=== PATIENT | male | born 1985 | race Caucasian/White ===

== ENCOUNTER 2019-06-17 13:42 | Emergency (ER) | payer OTHER ==
[~2019-06-17] VITALS: Ht 180.3 cm; Wt 75.7 kg
[2019-06-17 14:38] VITALS: BP 134/64
[2019-06-17] MEDS: fentaNYL PF VIAL 100 MCG/2 ML VIAL IM ONE (15:35)
[2019-06-17] MEDS: DIPHTH,PERTUSS(ACELL),TET TOX 0.5 ML DISP.SYRIN. VAX IM ONE (15:37)
--- NOTE | 2019-06-17 15:37 | RAD ---
Examination: 3 views of the right elbow HISTORY: History of fall, seizures COMPARISON: None available. FINDINGS: The alignment of the elbow joint grossly appears unremarkable. There is no obvious acute fracture or dislocation identified. No significant elbow joint effusion is evident. IMPRESSION: No acute osseous findings. If pain persists follow-up radiograph is recommended in 5-7 days. Electronically signed by: Jerome Chavez MD (06/17/2019 3:34 PM) [facility]
--- NOTE | 2019-06-17 16:07 | RAD ---
Examination: CT HEAD AND MAXILLOFACIAL WO History: Seizure and fall. Pain. Comparison/Correlation: None Findings: Axial images of the head were obtained without contrast. Axial images of the maxillofacial structures were also provided. Sagittal and coronal reformatted images were provided. Ventricles are normal size. No intracranial hemorrhage, midline shift, or mass effect. No depressed skull fracture. Displaced, comminuted bony nasal septal fractures are present. Fracture of the left nasal bone inferiorly is also present with displacement. Partial opacification of the right maxillary sinus is noted. Mild left maxillary sinus mucosal thickening is present. Orbits are intact. Deformity of the left zygomatic bone is noted. Correlate with prior history of trauma. No acute process at this site. Temporomandibular joints are unremarkable. Soft tissues of the lower face about the mandible are symmetric and unremarkable. Impression: Mildly comminuted bony nasal septal fractures with displacement. Left nasal bone fracture inferiorly with mild displacement. No intracranial hemorrhage. PQRS Compliance Statement: One or more of the following individualized dose reduction techniques were utilized for this examination: 1. Automated exposure control 2. Adjustment of the mA and/or kV according to patient size 3. Use of iterative reconstruction technique Electronically signed by: Dannie Murry MD (06/17/2019 4:04 PM) [facility]
--- NOTE | 2019-06-17 16:10 | PHYS DOC ---
Past Medical History Past Medical History: Asthma, Depression, Migraines, Seizure, Schizophrenia Additional Past Medical Histor: PTSD,BORDER LINE PERSONALITY DISORDER Past Surgical History: No Surgical History Alcohol Use: None Drug Use: Methadone Social History Narrative: LAST USED IN [place] Adult General Chief Complaint Chief Complaint: head injury HPI HPI Patient is a 33 year old incarcerated male with history of seizure, schizophrenia, migraine headache, asthma, PTSD, borderline personality and depression who presents with complaint of a seizure and injury to face. Patient states he was at the shower when he had a seizure with loss of consciousness and injured his face about couple hours prior to arrival to ER. Patient states he had nasal bleeding that stopped at arrival to ER. Patient also complaining of pain in the back of his head and right elbow. Patient rated his pain 9/10. Last tetanus immunization is unknown. Review of Systems Review of Systems Constitutional: Denies fever or chills [] Eyes: Denies change in visual acuity, redness, or eye pain [] HENT: Denies nasal congestion or sore throat [] Respiratory: Denies cough or shortness of breath [] Cardiovascular: No additional information not addressed in HPI [] GI: Denies abdominal pain, nausea, vomiting, bloody stools or diarrhea [] : Denies dysuria or hematuria [] Musculoskeletal: Denies back pain or joint pain [] Integument: Denies rash or skin lesions [] Neurologic: Denies focal weakness or sensory changes, reports headache [] Endocrine: Denies polyuria or polydipsia [] All other systems were reviewed and found to be within normal limits, except as documented in this note. Current Medications Current Medications Current Medications Medications (Trade) Dose Ordered Sig/Scott Start Time Stop Time Status Last Admin Dose Admin Cephalexin HCl (Keflex) 1,000 mg 1X ONCE 06/17/19 17:00 06/17/19 17:01 DC 06/17/19 17:08 1,000 MG Diphtheria/ Tetanus/Acell Pertussis (Boostrix) 0.5 ml ONCE ONCE 06/17/19 15:15 06/17/19 15:16 DC 06/17/19 15:37 0.5 ML Fentanyl Citrate (Fentanyl 2ml Vial) 50 mcg 1X ONCE 06/17/19 15:15 06/17/19 15:16 DC 06/17/19 15:35 50 MCG Oxycodone HCl (Roxicodone) 5 mg 1X ONCE 06/17/19 16:45 06/17/19 16:46 DC 06/17/19 17:08 5 MG Allergies Allergies Allergies Coded Allergies Type Severity Reaction Last Updated Verified acetaminophen Allergy Unknown 06/17/19 Yes amphetamine Allergy Unknown 06/17/19 Yes aripiprazole Allergy Unknown 06/17/19 Yes bupropion Allergy Unknown 06/17/19 Yes clonazepam Allergy Unknown 06/17/19 Yes clonidine Allergy Unknown 06/17/19 Yes dextroamphetamine Allergy Unknown 06/17/19 Yes doxepin Allergy Unknown 06/17/19 Yes lamotrigine Allergy Unknown 06/17/19 Yes methylphenidate Allergy Unknown 06/17/19 Yes quetiapine Allergy Unknown 06/17/19 Yes risperidone Allergy Unknown 06/17/19 Yes trazodone Allergy Unknown 06/17/19 Yes ziprasidone Allergy Unknown 06/17/19 Yes Physical Exam Physical Exam Constitutional: Well nourished, no acute distress, non-toxic appearance. [] HENT: Normocephalic, bilateral external ears normal, oropharynx moist, no oral e xudates, nasal edema and ecchymoses with tenderness, dried blood in bilateral nosetrill, laceration of left nosetrill extended to inside of nasal cavity Eyes: PERRLA, EOMI, conjunctiva normal, no discharge. [] Neck: Normal range of motion, no tenderness, supple, no stridor. [] Cardiovascular:Heart rate regular rhythm, no murmur [] Lungs & Thorax: Bilateral breath sounds clear to auscultation [] Abdomen: Bowel sounds normal, soft, no tenderness, no masses, no pulsatile masses. [] Skin: Warm, dry, no erythema, no rash. [] Back: No tenderness, no CVA tenderness. [] Extremities: No tenderness, no cyanosis, no clubbing, left elbow without ecchymosis, mild tenderness without change of range of motion ROM intact, no ed octavio. [] Neurologic: Alert and oriented X 3, normal motor function, normal sensory function, no focal deficits noted. [] Psychologic: Affect anxious, judgement normal, mood normal. [] Current Patient Data Vital Signs Vital Signs Date Time Temp Pulse Resp B/P (MAP) Pulse Ox O2 Delivery O2 Flow Rate FiO2 06/17/19 14:38 98.2 72 18 134/64 (87) 99 Room Air 98.2 EKG EKG [] Radiology/Procedures Radiology/Procedures [address] [address] IMAGING REPORT Signed PATIENT: BROCK DUMONTACCOUNT: [id number] : 1985 LOCATION: ER AGE: 33 SEX: M EXAM STATUS: REG ER ORD. PHYSICIAN: MARTIN FELIX MD REASON: seizure and fall PROCEDURE: ELBOW RIGHT 3V Examination: 3 views of the right elbow HISTORY: History of fall, seizures COMPARISON: None available. FINDINGS: The alignment of the elbow joint grossly appears unremarkable. There is no obvious acute fracture or dislocation identified. No significant elbow joint effusion is evident. IMPRESSION: No acute osseous findings. If pain persists follow-up radiograph is recommended in 5-7 days. Electronically signed by: Jerome Chavez MD (06/17/2019 3:34 PM) [id number] DICTATED and SIGNED BY: JEROME CHAVEZ MD DATE: 06/17/19 1534 [facility] [address] [place] [address] IMAGING REPORT Signed PATIENT: BROCK DUMONTACCOUNT: [id number] : 1985 LOCATION: ER AGE: 33 SEX: M EXAM STATUS: REG ER ORD. PHYSICIAN: MARTIN FELIX MD REASON: seizure and fall PROCEDURE: CT HEAD AND MAXILLOFACIAL WO Examination: CT HEAD AND MAXILLOFACIAL WO History: Seizure and fall. Pain. Comparison/Correlation: None Findings: Axial images of the head were obtained without contrast. Axial images of the maxillofacial structures were also provided. Sagittal and coronal reformatted images were provided. Ventricles are normal size. No intracranial hemorrhage, midline shift, or mass effect. No depressed skull fracture. Displaced, comminuted bony nasal septal fractures are present. Fracture of the left nasal bone inferiorly is also present with displacement. Partial opacification of the right maxillary sinus is noted. Mild left maxillary sinus mucosal thickening is present. Orbits are intact. Deformity of the left zygomatic bone is noted. Correlate with prior history of trauma. No acute process at this site. Temporomandibular joints are unremarkable. Soft tissues of the lower face about the mandible are symmetric and unremarkable. Impression: Mildly comminuted bony nasal septal fractures with displacement. Left nasal bone fracture inferiorly with mild displacement. No intracranial hemorrhage. PQRS Compliance Statement: One or more of the following individualized dose reduction techniques were utilized for this examination: 1. Automated exposure control 2. Adjustment of the mA and/or kV according to patient size 3. Use of iterative reconstruction technique Electronically signed by: Dannie Piña MD (06/17/2019 4:04 PM) [facility] DICTATED and SIGNED BY: DANNIE PIÑA MD DATE: 06/17/191603 Course & Med Decision Making Course & Med Decision Making Pertinent Imaging studies reviewed. (See chart for details) Evolution of patient in ER showed 33-year-old male patient with history of seizure and a fall after seizure with injury to face. CT of head was unrem arkable CT of maxillofacial showed some bone fracture. Laceration of nose bleed was repaired with Vicryl. Patient treated with [place] and Keflex in ER and prescription for Keflex and Naprosyn given and patient was discharged to police custody and was advised to follow-up with neurologist regarding managing his seizure and ENT regarding nasal fracture. I've spoken with the patient and/or caregivers. I've explained the patient's condition, diagnosis and treatment plan based on information available to me at this time. I've answered the patient's and/or caregivers questions and addressed any concerns. The patient and/or caregivers have a good understanding the patient's diagnosis, condition and treatment plan as can be expected at this point. Vital signs have been stabilized. The patient's condition is stable for discharge from the emergency department. The patient will pursue further outpatient evaluation with her primary care provider or other designated consulting physician as outlined in the discharge instructions. Patient and/or caregivers are agreeable to this plan of care and follow-up instructions have been explained in detail. The patient and/or caregivers have received these instructions in written format and expressed understanding of these discharge instructions. The patient and her caregivers are aware that if any significant change in condition or worsening of symptoms should prompt him to immediately return to this of the closest emergency department. If an emergent department is not readily available I would encourage him to call 911. Dilcia Disclaimer Dilcia Disclaimer This electronic medical record was generated, in whole or in part, using a voice recognition dictation system. Departure Departure Impression: Primary Impression: Nasal bone fracture Additional Impressions: Nasal laceration Injury of head Injury of elbow, right Seizure Disposition: HOME, SELF-CARE (at 1647) Condition: RELEASED IN CUSTODY Referrals: UNKNOWN PCP NAME (PCP) Patient Instructions: Facial Laceration, Head Injury, Adult, Nasal Fracture, Seizure, Adult Additional Instructions: Drink plenty of liquids Follow-up with your primary care physician in 3-5 days Return to ER if not getting better Follow up with ENT in 2 or 3 days for nasal bone fracture Follow up with neurologist for recurrent seizure in 2-3 days Thank you for visiting [facility]. We appreciate you trusting us with your care. If any additional problems come up don't hesitate to return to visit us. Please follow up with your primary care provider so they can plan additional care if needed and know about the problem that you had. If symptoms worsen come back to the Emergency Department. Any concerning symptoms that start such as chest pain, shortness of air, weakness or numbness on one side of the body, running high fevers or any other concerning symptoms return to the ER. Scripts Naproxen (NAPROSYN) 500 Mg Tablet 1 TAB PO BID for pain, #20 TAB Prov: MARTIN FELIX MD 06/17/19 Cephalexin (KEFLEX) 500 Mg Capsule 1 CAP PO Q8HRS, #21 CAP 0 Refills Prov: MARTIN FELIX MD 06/17/19 Laceration Repair Lac Repair Indication: nose laceration Procedure: The patient was placed in the appropriate position and anesthesia around the left nostrill laceration was given with 1.5 mL of 1% lidocaine. The area was then cleaned with normal saline. The laceration was repaired in 1 layer with 4 sutures of Vicryl 5-0. Total repaired wound length:1 cm Other Items:none The patient tolerated the procedure well. Complications:none Problem Qualifiers Primary Impression: Nasal bone fracture Encounter type: subsequent encounter Fracture type: closed Fracture healing: with routine healing Qualified Codes: S02.2XXD - Fracture of nasal bones, subsequent encounter for fracture with routine healing Additional Impressions: Nasal laceration Encounter type: initial encounter Qualified Codes: S01.21XA - Laceration without foreign body of nose, initial encounter Injury of head Encounter type: subsequent encounter Qualified Codes: S09.90XD - Un specified injury of head, subsequent encounter Injury of elbow, right Encounter type: subsequent encounter Qualified Codes: S59.901D - Unspecified injury of right elbow, subsequent encounter MARTIN FELIX MD Jun 17, 2019 16:10
[2019-06-17] MEDS ORDERED: NAPR-683 PO (16:53)
[2019-06-17] MEDS ORDERED: CEPH-264 PO (16:53)
[2019-06-17] MEDS: oxyCODONE IR 5 MG TABLET PO ONE (17:08)
[2019-06-17] MEDS: CEPHALEXIN 250 MG CAPSULE. PO ONE (17:08)
== END 2019-06-17 17:14 | disposition home or self-care (01) ==
LOC: ER 13:42 → EEVIPCON 13:42 → ER 17:14
DX: S02.2XXA Fracture of nasal bones, initial encounter for closed fracture (principal); S01.21XA Laceration without foreign body of nose, initial encounter; S59.901A Unspecified injury of right elbow, initial encounter; G43.909 Migraine, unspecified, not intractable, without status migrainosus; J45.909 Unspecified asthma, uncomplicated; F20.9 Schizophrenia, unspecified; Z88.6 Allergy status to analgesic agent; Z88.8 Allergy status to other drugs, medicaments and biological substances; W18.39XA Other fall on same level, initial encounter; Y93.89 Activity, other specified; Y92.89 Other specified places as the place of occurrence of the external cause; Y99.8 Other external cause status
CPT/HCPCS: 12011; 70450; 70486; 73080; 90471; 90715; 96372; 99284; J3010